=== PATIENT | male | born 1965 | race Caucasian/White ===

== ENCOUNTER 2021-07-06 09:04 | Emergency (ER) | payer BC, SELFPAY ==
--- NOTE | 2021-07-06 09:07 | ED.URI ---
HPI - URI/Sore Throat General Chief Complaint: Ear Stated Complaint: left ear pain Time Seen by Provider: 07/06/21 09:07 Source: patient and RN notes reviewed History of Present Illness HPI Narrative: Patient is a 56-year-old male who presents the urgent care with complaints of left ear pain for the last 3 days. Patient states he has been taking Advil for the pain. Denies of putting anything in the ear such as water, Q-tips, peroxide. However patient states that when he uses loud equipment at work he uses earplugs. Denies of any drainage from the ear. No other upper respiratory complaints. No acute distress noted. Patient aware of the plan of care. Some parts of this dictation were generated by voice recognition software and may contain typographical and/or grammatical inaccuracies. Related Data Allergies Allergy/AdvReac Type Severity Reaction Status Date / Time No Known Allergies Allergy Verified 07/06/21 09:16 Review of Systems Review of Systems: CONSTITUTIONAL: Denies fever, chills, or sweats. EYES: Denies visual changes, redness, or discharge. ENT: Denies rhinorrhea, congestion, sore throat. Reports of left otalgia CARDIOVASCULAR: Denies chest pain, palpitations, or edema. RESPIRATORY: Denies cough or dyspnea. GASTROINTESTINAL: Denies abdominal pain, nausea, vomiting, or diarrhea. GENITOURINARY: Denies dysuria or hematuria. SKIN: Denies rash or itching. MUSCULOSKELETAL: Denies back pain, joint pain, or myalgia. NEUROLOGIC: Denies headache, numbness, or weakness. All other systems reviewed are negative, except as documented in HPI. PMFSH Comments At the time of my signature, I reviewed and agree with the nursing past medical, surgical, social, and family history. There is no relevant family history pertinent to the patient complaint. Exam Narrative: GENERAL: This is a well-nourished, well-developed patient, in no apparent distress. HEAD: normocephalic, atraumatic. EYES: PERRL. Sclera clear/white. Vision is grossly intact. EARS: External ears normal, mild edema and erythema noted to the left auditory canal without drainage, right auditory canal clear and without drainage, TMs normal without perforation. Hearing grossly intact. NOSE: External nose normal with no obvious nasal discharge, nares without redness, no rhinorrhea. THROAT: Mucous membranes moist, posterior pharynx clear. NECK: Neck supple CARDIOVASCULAR: Regular rate and rhythm without murmurs, gallops, or rubs. RESPIRATORY: Clear to auscultation. Breath sounds equal bilaterally. No wheezes, rales, or rhonchi. SKIN: warm, intact with no suspicious lesions or rash, good texture and turgor. NEURO: awake, alert, and oriented to person, place and time. There were no obvious focal neurologic abnormalities. EXTREMITIES: No clubbing, cyanosis, or edema. Course Vital Signs Vital signs: Vital Signs Temperature 98.2 F 07/06/21 09:10 Pulse Rate 112 H 07/06/21 09:10 Respiratory Rate 20 07/06/21 09:10 Blood Pressure 141/106 H 07/06/21 09:10 Pulse Oximetry 100 07/06/21 09:10 Temperature 98.2 F 07/06/21 09:10 Pulse Rate 112 H 07/06/21 09:10 Respiratory Rate 20 07/06/21 09:10 Blood Pressure 141/106 H 07/06/21 09:10 Pulse Oximetry 100 07/06/21 09:10 Reviewed note-patient is informed that they may have pre-hypertension or hypertension based on a blood pressure reading in the department. I recommend the patient call the primary care provider listed on their discharge instructions or a physician of their choice this week to arrange follow-up for further evaluation of possible pre-hypertension or hypertension. MDM - URI/Sore Throat MDM Narrative Medical decision making narrative: Advised the patient to use the eardrops to the affected ear as directed. May use a warm compress to the ear as well as Tylenol/ibuprofen as needed for pain. Do not put anything in the ear such as earplugs, Q-tips, peroxide or water. If you develop any increase in sym
[2021-07-06 09:10] VITALS: BP 141/106; PULSE 112; RESP 20; TEMP 36.8; O2SAT 100
== END 2021-07-06 09:20 | disposition home or self-care (01) ==
PROVIDERS: Emergency Provider Nurse Practitioner Family
DX: H60.92 Unspecified otitis externa, left ear (principal); Z85.46 Personal history of malignant neoplasm of prostate
CPT/HCPCS: 99213; G0463